=== PATIENT | male | born 1980 ===

== ENCOUNTER 2018-08-17 11:35 | Outpatient (CLI) | payer OTHER | END 2018-08-17 11:36 | disposition home or self-care (01) | LOC: C.RADIC 11:35 | DX: J18.9 Pneumonia, unspecified organism (principal) ==

== ENCOUNTER 2018-11-04 21:52 | Inpatient (IN) | payer OTHER ==
--- NOTE | 2018-11-04 22:21 | C.PDOC ---
History Of Present Illness 37 y/o male presents to ED complaining of worsening SOB and lower leg edema over the last 3 weeks. Patient reports that the SOB worsens with exertion and when laying flat. He denies any chest pain, cough, fever, or palpitations. Patient has PMHx of hypertension, diabetes, CHF, and obstructive sleep apnea. PMD: Dr. Huerta [facility] Docent: Dr. Garrett Time Seen by Provider: 11/04/18 22:08 Chief Complaint (Nursing): Lower Extremity Problem/Injury History Per: Patient History/Exam Limitations: no limitations Onset/Duration Of Symptoms: Days Current Symptoms Are (Timing): Still Present Severity: Moderate Past Medical History Reviewed: Historical Data, Nursing Documentation, Vital Signs Vital Signs: Last Vital Signs Temp 98.2 F 11/04/18 21:57 Pulse 96 H 11/04/18 21:57 Resp 24 11/04/18 21:57 BP 143/80 11/04/18 21:57 Pulse Ox 92 L 11/04/18 21:57 - Medical History PMH: CHF, HTN, Hyperlipidemia Family History: States: No Known Family Hx - Social History Hx Alcohol Use: No Hx Substance Use: No - Immunization History Hx Tetanus Toxoid Vaccination: No Hx Influenza Vaccination: Yes Hx Pneumococcal Vaccination: No Review Of Systems Constitutional: Negative for: Fever, Chills Cardiovascular: Positive for: Orthopnea. Negative for: Chest Pain, Palpitations Respiratory: Positive for: Shortness of Breath, SOB with Excertion. Negative for: Cough Gastrointestinal: Negative for: Nausea, Vomiting Musculoskeletal: Positive for: Other (leg edema) Skin: Negative for: Rash Neurological: Negative for: Headache, Dizziness Physical Exam - Physical Exam Appears: Well, Non-toxic, No Acute Distress, Other (Comfortable, morbidly obese, speaking in full sentences) Skin: Warm, Dry Head: Atraumatic Eye(s): bilateral: Normal Inspection Oral Mucosa: Moist Neck: Supple Cardiovascular: Rhythm Regular Respiratory: Normal Breath Sounds, No Rales, No Rhonchi, No Wheezing Gastrointestinal/Abdominal: Normal Exam, Bowel Sounds, Soft, No Tenderness, Other (obese) Extremity: Other (+2 pitting edema B/L LEs) Extremity: Bilateral: Atraumatic Pulses: Left Dorsalis Pedis: Normal, Right Dorsalis Pedis: Normal Neurological/Psych: Oriented x3 ED Course And Treatment - Laboratory Results Result Diagrams: 11/07/18 07:41 11/07/18 07:41 ECG: Interpreted By Me, Viewed By Me (NSR 100 bpm, normal axis, no acute ST/T wave changes) ECG Interpretation: Normal O2 Sat by Pulse Oximetry: 92 (RA) Pulse Ox Interpretation: Abnormal - Radiology CXR: Interpreted by Me, Viewed By Me (pulmonary vascular congestion, cardiomegaly, no infiltrates) Progress Note: Blood work, EKG, chest XR ordered and reviewed. Patient given IV Lasix. - Physician Consult Information Physician Contacted: Belem Huerta Outcome Of Conversation: Discussed patient with PMD, agrees with admission for dyspnea, leg edema, diabetes mellitus, pulmonary vascular congestion - r/o CHF vs ACS. Disposition - Disposition Disposition: HOSPITALIZED Disposition Time: 23:04 Condition: STABLE - Clinical Impression Clinical Impression: Dyspnea, Pulmonary vascular congestion, Diabetes mellitus, Leg edema - Scribe Statement The provider has reviewed the documentation as recorded by the Neeraj Pritchard Provider Attestation: All medical record entries made by the Amberibreyna were at my direction and personally dictated by me. I have reviewed the chart and agree that the record accurately reflects my personal performance of the history, physical exam, medical decision making, and the department course for this patient. I have also personally directed, reviewed, and agree with the discharge instructions and disposition. Decision To Admit - Pt Status Changed To: Hospital Disposition Of: Inpatient - Admit Certification Admit to Inpatient:: After my assessment, the patient will require hospitalization for at least two midnights. This is because of the severity of symptoms shown, intensity of services needed, and/or the medical risk in this patient being treated as an outpatient. - InPatient: Physician Admission Certification: I certify that this patient requires 2 or more midnights of care for the following reason:: see notes - . Bed Request Type: Telemetry Admitting Physician: Belem Huerta Patient Diagnosis: Dyspnea, Pulmonary vascular congestion, Diabetes mellitus, Leg edema
[2018-11-04 22:31] LABS: BASO # 0.1 K/uL (0.0-0.2); BASO % 0.8 % (0.0-2.0); EOS # 0.1 K/uL (0.0-0.7); EOS % 1.3 % (0.0-4.0); HEMOGLOBIN 16.7 g/dL (12.0-18.0); LYMPH # 2.4 K/uL (1.0-4.3); LYMPH % 23.1 % (20.0-40.0); MEAN CELL VOLUME 84.6 fL (80.0-94.0); MEAN CORPUSCULAR HEMOGLOBIN 29.4 pg (27.0-31.0); MEAN CORPUSCULAR HGB CONC 34.8 g/dL (33.0-37.0); MEAN PLATELET VOLUME 7.8 fL (7.2-11.7); MONO # 0.8 K/uL (0.0-0.8); NEUT # 6.9 K/uL (1.8-7.0); NEUT % 66.8 % (50.0-75.0); NRBC % 0.2 % (0.0-2.0); RBC 5.67 Mil/uL (4.40-5.90); RED CELL DISTRIBUTION WIDTH 13.5 % (11.5-14.5); WHITE BLOOD COUNT 10.4 K/uL (4.8-10.8)
[2018-11-04 22:45] LABS: ALB/GLOB RATIO 1.3 (1.0-2.1); ALBUMIN 3.8 g/dL (3.5-5.0); ALT/SGPT 44 U/L (21-72); AST/SGOT 28 U/L (17-59); BLOOD UREA NITROGEN 17 mg/dL (9-20); CALCIUM 8.9 mg/dl (8.6-10.4); GFR NON-AFRICAN AMERICAN > 60
[2018-11-04] MEDS ORDERED: (Novolin R) Insulin Human Regular 100 units/ml vial IVP ONE (22:47)
--- NOTE | 2018-11-04 23:33 | CP.PCM.HP ---
History of Present Illness - History of Present Illness History of Present Illness: Chief complaint: Shortness of breath HPI:37-year-old male with a history of hypertension, diabetes, hypercholesterolemia, obesity, obesity hypoventilation. Patient recently had a significant weight gain over the course of 6 months. He also started having worsening diabetes over the course of his 3-6 months. Patient came to the office a month ago at that time he was having worsening leg swelling, and associate with the severe shortness of breath on the dosing of even a daytime while examining. He was complaining of severe shortness of breath especially on exertion with minimal Palpation noted. He was also complaining of dizziness with the coughing. Past medical history: Diabetes hypertension hypercholesterolemia and obesity and obesity hypoventilation. Patient is not using the CPAP in the house. He is also not taking the and not controlling the blood sugar well. Surgical history none Allergies no known drug allergy Personal history non-smoker nonalcoholic. Family history significant for CAD, diabetes, hypertension and Parkinson disease. Review of system: Complains of mild manager respiratory care headache. Right throat noted. Neck pain and the chest pain on and off noted. Palpitation present. Shortness of breath noted. Increasing leg swelling, leg edema noted Also some discharge noted. Patient was taking the Lasix with no improvement On examination: Vital signs otherwise stable. Hypoxia noted with minimal exertion. Chest bilateral good air entry, basal rales noted, regular heart sounds, abdomen soft nontender. Obesity present. Bilateral leg edema noted Chest x-ray bilateral CHF pattern noted. Labs reviewed otherwise elevated blood sugar noted. EKG nonspecific. Assessment and recommendation: 37-year-old male with a history of diabetes hypertension hypercholesterolemia obesity and obesity hypoventilation. Morbid obesity noted. Obesity complications present. Likely cor pulmonale and associate with the bilateral leg edema. Episodes of bradycardia noted also. We will continue the current treatment. Lasix. Cardiology evaluation. Glucose control. BiPAP at night. Cardiac possible evaluation for stress test versus angiogram recommended. DVT and GI prophylaxis. Patient already in the process of getting the weight loss treatment. We will follow the patient Present on Admission - Present on Admission Any Indicators Present on Admission: No History of DVT/PE: No History of Uncontrolled Diabetes: No Urinary Catheter: No Decubitus Ulcer Present: No Past Patient History - Past Social History Smoking Status: Never Smoked - CARDIAC Hx Congestive Heart Failure: Yes Hx Hypertension: Yes - PULMONARY Hx Respiratory Disorders: No - NEUROLOGICAL Hx Neurological Disorder: No - HEENT Hx HEENT Problems: No - RENAL Hx Chronic Kidney Disease: No - ENDOCRINE/METABOLIC Hx Endocrine Disorders: Yes Hx Diabetes Mellitus Type 2: Yes - HEMATOLOGICAL/ONCOLOGICAL Hx Blood Disorders: No - INTEGUMENTARY Hx Dermatological Problems: No - MUSCULOSKELETAL/RHEUMATOLOGICAL Hx Musculoskeletal Disorders: Yes Hx Back Pain: Yes - GASTROINTESTINAL Hx Gastrointestinal Disorders: No - GENITOURINARY/GYNECOLOGICAL Hx Genitourinary Disorders: No - PSYCHIATRIC Hx Substance Use: No - SURGICAL HISTORY Hx Surgeries: No - ANESTHESIA Hx Anesthesia: No Meds Allergies/Adverse Reactions: Allergies Allergy/AdvReac Type Severity Reaction Status Date / Time No Known Allergies Allergy Verified 11/04/18 22:00 Results - Vital Signs Recent Vital Signs: Last Vital Signs Temp 98.2 F 11/04/18 21:57 Pulse 96 H 11/04/18 21:57 Resp 24 11/04/18 21:57 BP 143/80 11/04/18 21:57 Pulse Ox 92 L 11/04/18 22:48 - Labs Result Diagrams: 11/05/18 08:30 11/05/18 08:16 Labs: Laboratory Results - last 24 hr 11/04/18 11/04/18 22:28 22:28 WBC 10.4 RBC 5.67 Hgb 16.7 Hct 47.9 MCV 84.6 MCH 29.4 MCHC 34.8 RDW 13.5 Plt Count 228 MPV 7.8 Neut % (Auto) 66.8 Lymph % (Auto) 23.1 [place] % (Auto) 8.0 Eos % (Auto) 1.3 Baso % (Auto) 0.8 Neut # (Auto) 6.9 Lymph # (Auto) 2.4 [place] # (Auto) 0.8 Eos # (Auto) 0.1 Baso # (Auto) 0.1 Sodium 136 Potassium 4.0 Chloride 95 L Carbon Dioxide 36 H Anion Gap 9 L BUN 17 Creatinine 1.0 Est GFR ( Amer) > 60 Est GFR (Non-Af Amer) > 60 Random Glucose 342 H Calcium 8.9 Total Bilirubin 0.4 AST 28 ALT 44 Alkaline Phosphatase 145 H Total Creatine Kinase 52 L CK-MB (Mass) 0.80 Troponin I < 0.0120 NT-Pro-B Natriuret Pep 21.0 Total Protein 6.6 Albumin 3.8 Globulin 2.9 Albumin/Globulin Ratio 1.3
[2018-11-05] MEDS: Albuterol-Ipratrop 3 mg / 0.5 (3 ml) UD INH SCH ×4 (02:58→19:24)
--- NOTE | 2018-11-05 08:11 | RAD ---
Date of service: 11/04/2018 PROCEDURE: CHEST RADIOGRAPH, 1 VIEW HISTORY: SOB COMPARISON: 08/17/2018 FINDINGS: LUNGS: The lungs are well inflated. There is mild pulmonary venous congestion. No focal consolidation. PLEURA: No pneumothorax or pleural effusion. CARDIOVASCULAR: Mild cardiomegaly. No aortic atherosclerotic calcifications present. OSSEOUS STRUCTURES: Within normal limits for the patient's age. VISUALIZED UPPER ABDOMEN: Normal. OTHER FINDINGS: None. IMPRESSION: No active pulmonary disease. Mild cardiomegaly and pulmonary venous congestion.
[2018-11-05] MEDS: (Novolin R) Insulin Human Regular 100 units/ml vial SC SCH ×4 (08:15→21:28)
[2018-11-05 09:08] LABS: BASO # 0.1 K/uL (0.0-0.2); BASO % 0.7 % (0.0-2.0); EOS # 0.1 K/uL (0.0-0.7); EOS % 1.5 % (0.0-4.0); HEMOGLOBIN 16.4 g/dL (12.0-18.0); LYMPH # 1.8 K/uL (1.0-4.3); LYMPH % 22.3 % (20.0-40.0); MEAN CELL VOLUME 85.8 fL (80.0-94.0); MEAN CORPUSCULAR HEMOGLOBIN 29.1 pg (27.0-31.0); MEAN PLATELET VOLUME 8.2 fL (7.2-11.7); MONO # 0.7 K/uL (0.0-0.8); MONO % 8.6 % (0.0-10.0); NEUT # 5.4 K/uL (1.8-7.0); NEUT % 66.9 % (50.0-75.0); NRBC % 0.1 % (0.0-2.0); RBC 5.65 Mil/uL (4.40-5.90); RED CELL DISTRIBUTION WIDTH 13.6 % (11.5-14.5); WHITE BLOOD COUNT 8.1 K/uL (4.8-10.8)
[2018-11-05 09:18] LABS: B-TYPE NATRIURETIC PEPTIDE 16.6 pg/mL (0-450); CK-MB 0.76 ng/mL (0.0-3.38)
[2018-11-05 09:33] LABS: ALB/GLOB RATIO 1.2 (1.0-2.1); ALBUMIN 3.6 g/dL (3.5-5.0); ALT/SGPT 43 U/L (21-72); AST/SGOT 31 U/L (17-59); BLOOD UREA NITROGEN 15 mg/dL (9-20); CALCIUM 8.5 mg/dl (8.6-10.4); GFR NON-AFRICAN AMERICAN > 60
[2018-11-05] MEDS: (Lantus) Insulin Glargine, Recombinant SC SCH (21:38)
--- NOTE | 2018-11-05 23:49 | CP.PCM.CON ---
History of Present Illness - History of Present Illness History of Present Illness: 37 y/o male presents to ED complaining of worsening SOB and lower leg edema that has been worsening over the last 3 weeks. Patient states that SOB worsens with exertion and when laying flat. He denies any chest pain, cough, fever, or p alpitations. Patient has PMHx of hypertension, diabetes, CHF, and obstructive sleep apnea. PMD: Dr. Huerta Time Seen by Provider: 11/04/18 22:08 Chief Complaint (Nursing): Lower Extremity Problem/Injury History Per: Patient History/Exam Limitations: no limitations Onset/Duration Of Symptoms: Days Current Symptoms Are (Timing): Still Present Past Medical History Reviewed: Historical Data, Nursing Documentation, Vital Signs Vital Signs: Last Vital Signs Temp 98.2 F 11/04/18 21:57 Pulse 96 H 11/04/18 21:57 Resp 24 11/04/18 21:57 BP 143/80 11/04/18 21:57 Pulse Ox 92 L 11/04/18 21:57 - Medical History PMH: CHF, HTN, Hyperlipidemia Denies: Chronic Kidney Disease Family History: States: No Known Family Hx - Social History Hx Alcohol Use: No Hx Substance Use: No - Immunization History Hx Tetanus Toxoid Vaccination: No Hx Influenza Vaccination: Yes Hx Pneumococcal Vaccination: No Review Of Systems Constitutional: Negative for: Fever, Chills Cardiovascular: Negative for: Chest Pain, Palpitations Respiratory: Positive for: Shortness of Breath. Negative for: Cough Gastrointestinal: Negative for: Nausea, Vomiting Musculoskeletal: Positive for: Other (leg edema) Skin: Negative for: Rash Physical Exam - Physical Exam Appears: Non-toxic, No Acute Distress, Other (Comfortable, morbidly obese) Skin: Warm, Dry Head: Atraumatic Eye(s): bilateral: Normal Inspection Oral Mucosa: Moist Neck: Supple Cardiovascular: Rhythm Regular, No Murmur Respiratory: Normal Breath Sounds, No Rales, No Rhonchi, No Wheezing Gastrointestinal/Abdominal: Soft, No Tenderness, Other (obese) Extremity: Other (+2 pitting edema) Extremity: Bilateral: Atraumatic Neurological/Psych: Oriented x3, Normal Speech (speaking full sentences) ED Course And Treatment - Laboratory Results ECG: Interpreted By Me, Viewed By Me (NSR 100 bpm, normal axis, no acute ST/T wave changes) ECG Interpretation: Normal O2 Sat by Pulse Oximetry: 92 (RA) Pulse Ox Interpretation: Abnormal - Radiology CXR: Interpreted by Me, Viewed By Me (pulmonary vascular congestion, cardiomegaly, no infiltrates) Progress Note: EKG, chest XR, and labs ordered. Lasix administered. Past Patient History - Past Social History Smoking Status: Former Smoker - CARDIAC Hx Congestive Heart Failure: Yes Hx Hypertension: Yes - PULMONARY Hx Respiratory Disorders: No - NEUROLOGICAL Hx Neurological Disorder: No - HEENT Hx HEENT Problems: No - RENAL Hx Chronic Kidney Disease: No - ENDOCRINE/METABOLIC Hx Endocrine Disorders: Yes Hx Diabetes Mellitus Type 2: Yes - HEMATOLOGICAL/ONCOLOGICAL Hx Blood Disorders: No - INTEGUMENTARY Hx Dermatological Problems: No - MUSCULOSKELETAL/RHEUMATOLOGICAL Hx Musculoskeletal Disorders: Yes Hx Back Pain: Yes Hx Falls: No - GASTROINTESTINAL Hx Gastrointestinal Disorders: No - GENITOURINARY/GYNECOLOGICAL Hx Genitourinary Disorders: No - PSYCHIATRIC Hx Substance Use: No - SURGICAL HISTORY Hx Surgeries: No - ANESTHESIA Hx Anesthesia: No Meds Allergies/Adverse Reactions: Allergies Allergy/AdvReac Type Severity Reaction Status Date / Time No Known Allergies Allergy Verified 11/04/18 22:00 - Medications Medications: Current Medications Albuterol/Ipratropium (Duoneb 3 Mg/0.5 Mg (3 Ml) Ud) 3 ml INH RQ6 [facility] Last Admin: 11/05/18 19:24 Dose: 3 ml Famotidine (Pepcid) 20 mg PO DAILY [facility] Last Admin: 11/05/18 10:43 Dose: 20 mg Furosemide (Lasix) 20 mg IVP DAILY [facility] Last Admin: 11/05/18 10:44 Dose: 20 mg Glipizide (Glucotrol) 10 mg PO ACB [facility] Last Admin: 11/05/18 08:10 Dose: 10 mg Heparin Sodium (Porcine) (Heparin) 5,000 units SC Q8 [facility] Last Admin: 11/05/18 21:36 Dose: 5,000 units Insulin Glargine (Lantus) 10 unit SC HS [facility] Last Admin: 11/05/18 21:38 Dose: 10 u Insulin Human Regular (Novolin R) 0 unit SC ACHS [facility]; Protocol Last Admin: 11/05/18 21:28 Dose: Not Given Losartan Potassium (Cozaar) 50 mg PO DAILY [facility] Last Admin: 11/05/18 10:43 Dose: 50 mg Pneumococcal Polyvalent Vaccine (Pneumovax 23 Vaccine) 0.5 ml IM .ONCE ONE Stop: 11/08/18 10:01 Rosuvastatin Calcium (Crestor) 5 mg PO DAILY [facility] Last Admin: 11/05/18 10:46 Dose: 5 mg Rosuvastatin Calcium (Crestor) 5 mg PO HS [facility] Last Admin: 11/05/18 21:35 Dose: 5 mg Sitagliptin Phosphate (Januvia) 100 mg PO DAILY [facility] Last Admin: 11/05/18 10:44 Dose: 100 mg Results - Vital Signs Recent Vital Signs: Last Vital Signs Temp 98.4 F 11/05/18 22:00 Pulse 105 H 11/05/18 22:00 Resp 22 11/05/18 22:00 BP 113/76 11/05/18 22:00 Pulse Ox 95 11/05/18 22:00 - Labs Result Diagrams: 11/05/18 08:30 11/05/18 08:16 Labs: Laboratory Results - last 24 hr 11/05/18 11/05/18 11/05/18 05:49 08:16 08:30 WBC 8.1 RBC 5.65 Hgb 16.4 Hct 48.4 MCV 85.8 MCH 29.1 MCHC 34.0 RDW 13.6 Plt Count 231 MPV 8.2 Neut % (Auto) 66.9 Lymph % (Auto) 22.3 [place] % (Auto) 8.6 Eos % (Auto) 1.5 Baso % (Auto) 0.7 Neut # (Auto) 5.4 Lymph # (Auto) 1.8 [place] # (Auto) 0.7 Eos # (Auto) 0.1 Baso # (Auto) 0.1 Sodium 137 Potassium 3.6 Chloride 96 L Carbon Dioxide 35 H Anion Gap 10 BUN 15 Creatinine 0.7 L Est GFR ( Amer) > 60 Est GFR (Non-Af Amer) > 60 POC Glucose (mg/dL) 231 H Random Glucose 286 H Calcium 8.5 L Phosphorus 4.4 Magnesium 1.7 Total Bilirubin 0.5 AST 31 ALT 43 Alkaline Phosphatase 118 Total Creatine Kinase 41 L CK-MB (Mass) 0.76 Troponin I < 0.0120 NT-Pro-B Natriuret Pep 16.6 Total Protein 6.5 Albumin 3.6 Globulin 2.9 Albumin/Globulin Ratio 1.2 11/05/18 11/05/1811/05/19 11:12 16:07 20:54 WBC RBC Hgb Hct MCV MCH MCHC RDW Plt Count MPV Neut % (Auto) Lymph % (Auto) [place] % (Auto) Eos % (Auto) Baso % (Auto) Neut # (Auto) Lymph # (Auto) [place] # (Auto) Eos # (Auto) Baso # (Auto) Sodium Potassium Chloride Carbon Dioxide Anion Gap BUN Creatinine Est GFR ( Amer) Est GFR (Non-Af Amer) POC Glucose (mg/dL) 236 H 279 H 267 H Random Glucose Calcium Phosphorus Magnesium Total Bilirubin AST ALT Alkaline Phosphatase Total Creatine Kinase CK-MB (Mass) Troponin I NT-Pro-B Natriuret Pep Total Protein Albumin Globulin Albumin/Globulin Ratio Assessment & Plan - Assessment and Plan (Free Text) Assessment: 37 M HTN DM 2 Hyperlipidemia Obesity Chest pain and dyspnea For stress test in am
[2018-11-06] MEDS: Albuterol-Ipratrop 3 mg / 0.5 (3 ml) UD INH SCH ×4 (01:46→19:15)
[2018-11-06] MEDS: (Novolin R) Insulin Human Regular 100 units/ml vial SC SCH ×4 (08:42→21:51)
--- NOTE | 2018-11-06 10:01 | CARD ---
APPROVED REPORT Date of service: 11/04/2018 EKG Measurement Heart [id number] <Conclusion> Normal sinus rhythm Normal ECG
--- NOTE | 2018-11-06 12:30 | VASCLAB ---
Date of service: 11/06/2018 PROCEDURE: Lower Extremity Venous Duplex Exam. HISTORY: dvt B/L LE Edema, SOB, Morbid Obesity PRIORS: None. TECHNIQUE: Bilateral common femoral, femoral, popliteal and posterior tibial, peroneal and great saphenous veins were evaluated. Flow was assessed with color Doppler, compressibility, assessment of phasic flow and augmentation response. Report prepared by Yandel Xiong, T FINDINGS: RIGHT: 1. Common Femoral Vein: 1.1. Compressibility - Fully compressible: Thrombus - None : Flow - Phasic: Augmentation -Normal: Reflux - . 2. Femoral Vein: 2.1. Compressibility - Fully compressible: Thrombus - None : Flow - Phasic: Augmentation -Normal: Reflux - . 3. Popliteal Vein: 3.1. Compressibility - Fully compressible: Thrombus - None : Flow - Phasic: Augmentation -Normal: Reflux - . 4. Posterior Tibial Vein: 4.1. Compressibility - Fully compressible: Thrombus - None: Flow - Phasic: Augmentation -Normal: Reflux - . 5. Peroneal Vein: 5.1. Compressibility - Fully compressible: Thrombus - None: Flow - Phasic: Augmentation -Normal: Reflux - . 6. Great Saphenous Vein: 6.1. Compressibility - Fully compressible: Thrombus - None: Flow - Phasic: Augmentation - Normal: Reflux - . LEFT: 1. Common Femoral Vein: 1.1. Compressibility - Fully compressible: Thrombus - None: Flow - Phasic: Augmentation -Normal: Reflux - . 2. Femoral Vein: 2.1. Compressibility - Fully compressible: Thrombus - None: Flow - Phasic: Augmentation -Normal: Reflux - . 3. Popliteal Vein: 3.1. Compressibility - Fully compressible: Thrombus - None : Flow - Phasic: Augmentation -Normal: Reflux - . 4. Posterior Tibial Vein: 4.1. Compressibility - Fully compressible: Thrombus - None: Flow - Phasic: Augmentation -Normal: Reflux - . 5. Peroneal Vein: 5.1. Compressibility - Fully compressible: Thrombus - None: Flow - Phasic: Augmentation -Normal: Reflux - . 6. Great Saphenous Vein: 6.1. Compressibility - Fully compressible: Thrombus - None: Flow - Phasic: Augmentation - Normal: Reflux - . OTHER FINDINGS: Right: None significant. Left: None significant. IMPRESSION: Right: No evidence of deep or superficial vein thrombosis of the right lower extremity. Left: No evidence of deep or superficial vein thrombosis of the left lower extremity.
--- NOTE | 2018-11-06 15:03 | CP.PCM.PN ---
Subjective - Date & Time of Evaluation Date of Evaluation: 11/05/18 Time of Evaluation: 15:02 - Subjective Subjective: Patient is feeling well. Leg swelling is slightly improving. Still shortness of breath noted. I discussed with the cardiology, for possible stress test tomorrow Objective - Vital Signs/Intake and Output Vital Signs (last 24 hours): Temp Pulse Resp BP Pulse Ox 97.7 F 114 H 18 120/77 95 11/06/18 10:19 11/06/18 13:18 11/06/18 10:19 11/06/18 10:19 11/06/18 13:12 Intake and Output: 11/06/18 11/06/18 06:59 18:59 Intake Total 300 800 Balance 300 800 - Medications Medications: Current Medications Albuterol/Ipratropium (Duoneb 3 Mg/0.5 Mg (3 Ml) Ud) 3 ml INH RQ6 [facility] Last Admin: 11/06/18 13:03 Dose: 3 ml Famotidine (Pepcid) 20 mg PO DAILY [facility] Last Admin: 11/06/18 09:52 Dose: 20 mg Furosemide (Lasix) 20 mg IVP DAILY [facility] Last Admin: 11/06/18 09:52 Dose: 20 mg Glipizide (Glucotrol) 10 mg PO ACB [facility] Last Admin: 11/06/18 08:41 Dose: Not Given Heparin Sodium (Porcine) (Heparin) 5,000 units SC Q8 [facility] Last Admin: 11/06/18 14:13 Dose: 5,000 units Insulin Glargine (Lantus) 10 unit SC HS [facility] Last Admin: 11/05/18 21:38 Dose: 10 u Insulin Human Regular (Novolin R) 0 unit SC ACHS [facility]; Protocol Last Admin: 11/06/18 12:27 Dose: 10 unit Losartan Potassium (Cozaar) 50 mg PO DAILY [facility] Last Admin: 11/06/18 09:51 Dose: 50 mg Pneumococcal Polyvalent Vaccine (Pneumovax 23 Vaccine) 0.5 ml IM .ONCE ONE Stop: 11/08/18 10:01 Rosuvastatin Calcium (Crestor) 5 mg PO HS [facility] Last Admin: 11/05/18 21:35 Dose: 5 mg Sitagliptin Phosphate (Januvia) 100 mg PO DAILY [facility] Last Admin: 11/06/18 09:52 Dose: 100 mg - Labs Labs: 11/05/18 08:30 11/05/18 08:16
--- NOTE | 2018-11-06 15:03 | CP.PCM.PN ---
Subjective - Date & Time of Evaluation Date of Evaluation: 11/06/18 Time of Evaluation: 15:03 - Subjective Subjective: Patient last night he did not use the CPAP. Patient had episodes of bradycardia, and a sinus pause for 5 seconds noted. Could not do the stress test today. Will talk to the global director air and climate change, for possible angiogram. I also would like to get the elective physiological evaluation for the bradycardia especially at nighttime. Most likely related to sleep apnea and obstructive sleep apnea. We will continue the current treatment and will follow the patient. Objective - Vital Signs/Intake and Output Vital Signs (last 24 hours): Temp Pulse Resp BP Pulse Ox 97.7 F 114 H 18 120/77 95 11/06/18 10:19 11/06/18 13:18 11/06/18 10:19 11/06/18 10:19 11/06/18 13:12 Intake and Output: 11/06/18 11/06/18 06:59 18:59 Intake Total 300 800 Balance 300 800 - Medications Medications: Current Medications Albuterol/Ipratropium (Duoneb 3 Mg/0.5 Mg (3 Ml) Ud) 3 ml INH RQ6 [facility] Last Admin: 11/06/18 13:03 Dose: 3 ml Famotidine (Pepcid) 20 mg PO DAILY [facility] Last Admin: 11/06/18 09:52 Dose: 20 mg Furosemide (Lasix) 20 mg IVP DAILY [facility] Last Admin: 11/06/18 09:52 Dose: 20 mg Glipizide (Glucotrol) 10 mg PO ACB [facility] Last Admin: 11/06/18 08:41 Dose: Not Given Heparin Sodium (Porcine) (Heparin) 5,000 units SC Q8 [facility] Last Admin: 11/06/18 14:13 Dose: 5,000 units Insulin Glargine (Lantus) 10 unit SC HS [facility] Last Admin: 11/05/18 21:38 Dose: 10 u Insulin Human Regular (Novolin R) 0 unit SC ACHS [facility]; Protocol Last Admin: 11/06/18 12:27 Dose: 10 unit Losartan Potassium (Cozaar) 50 mg PO DAILY [facility] Last Admin: 11/06/18 09:51 Dose: 50 mg Pneumococcal Polyvalent Vaccine (Pneumovax 23 Vaccine) 0.5 ml IM .ONCE ONE Stop: 11/08/18 10:01 Rosuvastatin Calcium (Crestor) 5 mg PO [facility] Last Admin: 11/05/18 21:35 Dose: 5 mg Sitagliptin Phosphate (Januvia) 100 mg PO DAILY [facility] Last Admin: 11/06/18 09:52 Dose: 100 mg - Labs Labs: 11/05/18 08:30 11/05/18 08:16
--- NOTE | 2018-11-06 20:47 | CARD ---
APPROVED REPORT Date of service: 11/06/2018 EXAM: Two-dimensional and M-mode echocardiogram with Doppler and color Doppler. Other Information Quality : Technically LimitedRhythm : INDICATION Chest Pain Congestive Heart Failure Coronary stent; HEP-C RISK FACTORS Hypertension Obesity Hyperlipidemia Diabetes 2D DIMENSIONS IVSd1.4 (0.7-1.1cm)Aortic Root (2D)3.6 (2.0-3.7cm) LVDd5.1 (3.9-5.9cm)PWd1.4 (0.7-1.1cm) LA Yhbtda27 (18-58mL)LVDs3.4 (2.5-4.0cm) FS (%) 32.8 %LVEF (%)61.0 (>50%) LVEF (Posadas's)63.83 %IVC0.00 cm M-Mode DIMENSIONS RVDd3.64 (2.1-3.2cm)Left Atrium (MM)4.21 (2.5-4.0cm) IVSd1.21 (0.7-1.1cm)Aortic Root3.34 (2.2-3.7cm) LVDd5.51 (4.0-5.6cm)Aortic Cusp Exc.2.39 (1.5-2.0cm) PWd1.13 (0.7-1.1cm)FS (%) 35 % LVDs3.60 (2.0-3.8cm)LVEF (%)63 (>50%) Mitral Valve MV E Hpemqoop80.9cm/sMV A Bwdgxxmk64.9cm/sE/A ratio1.3 TDI Lateral E' Peak V8.09cm/sMedial E' Peak V9.06cm/sE/Lateral E'11.5 E/Medial E'10.3 Tricuspid Valve TR Peak Rdyeibwh407pz/sTR Peak Gr.[id number] LEFT VENTRICLE The left ventricle is normal size. There is mild concentric left ventricular hypertrophy. Left ventricle systolic function is normal. The Ejection Fraction is 60-65%. There is normal LV segmental wall motion. The left ventricular diastolic function is normal. No left ventricle thrombus noted on this study. RIGHT VENTRICLE The right ventricle is normal size. The right ventricular systolic function is normal. ATRIA The left atrium is mildly dilated. The right atrium size is normal. AORTIC VALVE The aortic valve is trileaflet. No aortic regurgitation is present. There is no aortic valvular stenosis. There is no aortic valvular vegetation. MITRAL VALVE Mitral annular calcification is mild. There is no evidence of mitral valve prolapse. There is no mitral valve stenosis. Mitral regurgitation is trace. TRICUSPID VALVE The tricuspid valve is normal in structure. There is trace tricuspid regurgitation. Right ventricular systolic pressure is estimated at less than 30 mmHg. There is no pulmonary hypertension. There is no tricuspid valve prolapse or vegetation. There is no tricuspid valve stenosis. PULMONIC VALVE The pulmonic valve is not well visualized. There is no pulmonic valvular regurgitation. There is no pulmonic valvular stenosis. GREAT VESSELS The aortic root is normal in size. The ascending aorta is normal in size. The IVC is normal in size and collapses >50% with inspiration. PERICARDIAL EFFUSION There is no pericardial effusion. There is no pleural effusion. <Conclusion> Technically limited study. The left ventricle is normal size. There is mild concentric left ventricular hypertrophy. Left ventricle systolic function is normal. The Ejection Fraction is 60-65%. The left ventricular diastolic function is normal. The right ventricle is normal size. The right ventricular systolic function is normal. The left atrium is mildly dilated. The right atrium size is normal. Mitral regurgitation is trace. There is trace tricuspid regurgitation.
[2018-11-06] MEDS: (Lantus) Insulin Glargine, Recombinant SC SCH (21:49)
[2018-11-07] MEDS: Albuterol-Ipratrop 3 mg / 0.5 (3 ml) UD INH SCH ×3 (01:40→19:03)
--- NOTE | 2018-11-07 05:40 | CP.PCM.PN ---
Subjective - Date & Time of Evaluation Date of Evaluation: 11/06/18 Time of Evaluation: 16:25 - Subjective Subjective: Stress test got cancelled due to weight issues For Cardiac cath tomorrow EP consult for cardiac pauses and bradycardia Review Of Systems Constitutional: Negative for: Fever, Chills Cardiovascular: Negative for: Chest Pain, Palpitations Respiratory: Positive for: Shortness of Breath. Negative for: Cough Gastrointestinal: Negative for: Nausea, Vomiting Musculoskeletal: Positive for: Other (leg edema) Skin: Negative for: Rash Physical Exam - Physical Exam Appears: Non-toxic, No Acute Distress, Other (Comfortable, morbidly obese) Skin: Warm, Dry Head: Atraumatic Eye(s): bilateral: Normal Inspection Oral Mucosa: Moist Neck: Supple Cardiovascular: Rhythm Regular, No Murmur Respiratory: Normal Breath Sounds, No Rales, No Rhonchi, No Wheezing Gastrointestinal/Abdominal: Soft, No Tenderness, Other (obese) Extremity: Other (+2 pitting edema) Extremity: Bilateral: Atraumatic Neurological/Psych: Oriented x3, Normal Speech (speaking full sentences) Objective - Vital Signs/Intake and Output Vital Signs (last 24 hours): Temp Pulse Resp BP Pulse Ox 97.5 F L 96 H 15 127/76 95 11/06/18 23:22 11/07/18 02:02 11/06/18 23:22 11/06/18 23:22 11/06/18 23:22 Intake and Output: 11/06/18 11/07/18 18:59 06:59 Intake Total 800 800 Balance 800 800 - Medications Medications: Current Medications Albuterol/Ipratropium (Duoneb 3 Mg/0.5 Mg (3 Ml) Ud) 3 ml INH RQ6 [facility] Last Admin: 11/07/18 01:40 Dose: 3 ml Famotidine (Pepcid) 20 mg PO DAILY [facility] Last Admin: 11/06/18 09:52 Dose: 20 mg Furosemide (Lasix) 20 mg IVP DAILY [facility] Last Admin: 11/06/18 09:52 Dose: 20 mg Glipizide (Glucotrol) 10 mg PO ACB [facility] Last Admin: 11/06/18 08:41 Dose: Not Given Heparin Sodium (Porcine) (Heparin) 5,000 units SC Q8 [facility] Last Admin: 11/06/18 21:48 Dose: 5,000 units Insulin Glargine (Lantus) 10 unit SC [facility] Last Admin: 11/06/18 21:49 Dose: 10 u Insulin Human Regular (Novolin R) 0 unit SC [facility]; Protocol Last Admin: 11/06/18 21:51 Dose: 2 unit Losartan Potassium (Cozaar) 50 mg PO DAILY [facility] Last Admin: 11/06/18 09:51 Dose: 50 mg Pneumococcal Polyvalent Vaccine (Pneumovax 23 Vaccine) 0.5 ml IM .ONCE ONE Stop: 11/08/18 10:01 Rosuvastatin Calcium (Crestor) 5 mg PO [facility] Last Admin: 11/06/18 21:48 Dose: 5 mg Sitagliptin Phosphate (Januvia) 100 mg PO DAILY [facility] Last Admin: 11/06/18 09:52 Dose: 100 mg - Labs Labs: 11/05/18 08:30 11/05/18 08:16 Assessment and Plan - Assessment and Plan (Free Text) Assessment: Cardiac arrhytmias with pauses HTN DM2 [facility]HA[facility] Pending EP eval
[2018-11-07] MEDS: (Novolin R) Insulin Human Regular 100 units/ml vial SC SCH ×4 (07:34→22:45)
[2018-11-07 08:20] LABS: ALB/GLOB RATIO 1.3 (1.0-2.1); ALBUMIN 3.8 g/dL (3.5-5.0); ALT/SGPT 40 U/L (21-72); AST/SGOT 32 U/L (17-59); BLOOD UREA NITROGEN 16 mg/dL (9-20); CALCIUM 8.7 mg/dl (8.6-10.4); GFR NON-AFRICAN AMERICAN > 60; HDL CHOLESTEROL 37 mg/dL (30-70)
[2018-11-07 08:24] LABS: BASO # 0.1 K/uL (0.0-0.2); BASO % 1.4 % (0.0-2.0); EOS # 0.2 K/uL (0.0-0.7); EOS % 2.4 % (0.0-4.0); HEMOGLOBIN 16.8 g/dL (12.0-18.0); INR 1.1; LYMPH # 1.9 K/uL (1.0-4.3); LYMPH % 21.5 % (20.0-40.0); MEAN CELL VOLUME 85.9 fL (80.0-94.0); MEAN CORPUSCULAR HEMOGLOBIN 29.8 pg (27.0-31.0); MEAN CORPUSCULAR HGB CONC 34.7 g/dL (33.0-37.0); MEAN PLATELET VOLUME 8.6 fL (7.2-11.7); MONO # 0.8 K/uL (0.0-0.8); MONO % 9.1 % (0.0-10.0); NEUT # 5.6 K/uL (1.8-7.0); NEUT % 65.6 % (50.0-75.0); NRBC % 0.2 % (0.0-2.0); PROTHROMBIN TIME 11.5 SECONDS (9.7-12.2); RBC 5.64 Mil/uL (4.40-5.90); RED CELL DISTRIBUTION WIDTH 13.1 % (11.5-14.5); WHITE BLOOD COUNT 8.6 K/uL (4.8-10.8)
[2018-11-07 08:53] LABS: LDL CHOLESTEROL 71 mg/dL (0-129)
[2018-11-07] MEDS ORDERED: Iodixanol 320 MG/ML 100 ML BOTTLE IV ONE ×2 (10:29→11:25)
[2018-11-07] MEDS ORDERED: Lidocaine 2% MPF (5 ml) Inj ONE (10:29)
[2018-11-07] MEDS ORDERED: Midazolam 2 MG/2 ML VIAL ONE (10:56)
[2018-11-07] MEDS ORDERED: DiphenhydrAMINE 50 mg/ml Inj ONE (11:03)
--- NOTE | 2018-11-07 14:41 | CP.PCM.PN ---
Subjective - Date & Time of Evaluation Date of Evaluation: 11/07/18 Time of Evaluation: 14:40 - Subjective Subjective: Patient s/p cardiac cath 1. Normal cath and Normal EF Medical management Objective - Vital Signs/Intake and Output Vital Signs (last 24 hours): Temp Pulse Resp BP Pulse Ox 97.3 F L 94 H 20 124/78 92 L 11/07/18 08:24 11/07/18 08:24 11/07/18 08:24 11/07/18 14:25 11/07/18 10:58 Intake and Output: 11/07/18 11/07/18 06:59 18:59 Intake Total 800 Balance 800 - Medications Medications: Current Medications Albuterol/Ipratropium (Duoneb 3 Mg/0.5 Mg (3 Ml) Ud) 3 ml INH RQ6 [facility] Last Admin: 11/07/18 09:46 Dose: Not Given Famotidine (Pepcid) 20 mg PO DAILY [facility] Last Admin: 11/07/18 14:25 Dose: 20 mg Furosemide (Lasix) 20 mg IVP DAILY [facility] Last Admin: 11/07/18 14:25 Dose: 20 mg Glipizide (Glucotrol) 10 mg PO ACB [facility] Last Admin: 11/07/18 08:00 Dose: Not Given Heparin Sodium (Porcine) (Heparin) 5,000 units SC Q8 [facility] Last Admin: 11/06/18 21:48 Dose: 5,000 units Insulin Glargine (Lantus) 10 unit SC HS [facility] Last Admin: 11/06/18 21:49 Dose: 10 u Insulin Human Regular (Novolin R) 0 unit SC ACHS [facility]; Protocol Last Admin: 11/07/18 07:34 Dose: Not Given Losartan Potassium (Cozaar) 50 mg PO DAILY [facility] Last Admin: 11/07/18 12:42 Dose: 50 mg Pneumococcal Polyvalent Vaccine (Pneumovax 23 Vaccine) 0.5 ml IM .ONCE ONE Stop: 11/08/18 10:01 Rosuvastatin Calcium (Crestor) 5 mg PO HS [facility] Last Admin: 11/06/18 21:48 Dose: 5 mg Sitagliptin Phosphate (Januvia) 100 mg PO DAILY [facility] Last Admin: 11/07/18 14:24 Dose: 100 mg - Labs Labs: 11/07/18 07:41 11/07/18 07:41 PT 11.5 SECONDS (9.7-12.2) 11/07/18 07:41 INR 1.1 11/07/18 07:41
[2018-11-07] MEDS: (Lantus) Insulin Glargine, Recombinant SC SCH (22:11)
--- NOTE | 2018-11-07 22:17 | CP.PCM.PN ---
Subjective - Date & Time of Evaluation Date of Evaluation: 11/07/18 Time of Evaluation: 22:17 - Subjective Subjective: Patient persistently having bradycardia at night. I spoke to the flight attendant. I discussed with the patient in detail that he will definitely need a back-up for the significant bradycardic event at night. We will get the street sweeper operator opinion and they will follow-up the patient Objective - Vital Signs/Intake and Output Vital Signs (last 24 hours): Temp Pulse Resp BP Pulse Ox 97.6 F 111 H 20 125/75 95 11/07/18 15:52 11/07/18 19:45 11/07/18 15:52 11/07/18 15:52 11/07/18 15:52 - Medications Medications: Current Medications Albuterol/Ipratropium (Duoneb 3 Mg/0.5 Mg (3 Ml) Ud) 3 ml INH RQ6 [facility] Last Admin: 11/07/18 19:03 Dose: 3 ml Famotidine (Pepcid) 20 mg PO DAILY [facility] Last Admin: 11/07/18 14:25 Dose: 20 mg Furosemide (Lasix) 20 mg IVP DAILY [facility] Last Admin: 11/07/18 14:25 Dose: 20 mg Glipizide (Glucotrol) 10 mg PO ACB [facility] Last Admin: 11/07/18 08:00 Dose: Not Given Heparin Sodium (Porcine) (Heparin) 5,000 units SC Q8 [facility] Last Admin: 11/06/18 21:48 Dose: 5,000 units Insulin Glargine (Lantus) 10 unit SC HS [facility] Last Admin: 11/07/18 22:11 Dose: 10 u Insulin Human Regular (Novolin R) 0 unit SC ACHS [facility]; Protocol Last Admin: 11/07/18 18:01 Dose: 6 unit Losartan Potassium (Cozaar) 50 mg PO DAILY [facility] Last Admin: 11/07/18 12:42 Dose: 50 mg Pneumococcal Polyvalent Vaccine (Pneumovax 23 Vaccine) 0.5 ml IM .ONCE ONE Stop: 11/08/18 10:01 Rosuvastatin Calcium (Crestor) 5 mg PO HS [facility] Last Admin: 11/07/18 22:03 Dose: 5 mg Sitagliptin Phosphate (Januvia) 100 mg PO DAILY [facility] Last Admin: 11/07/18 14:24 Dose: 100 mg - Labs Labs: 11/07/18 07:41 11/07/18 07:41 PT 11.5 SECONDS (9.7-12.2) 11/07/18 07:41 INR 1.1 11/07/18 07:41
[2018-11-08] MEDS: Albuterol-Ipratrop 3 mg / 0.5 (3 ml) UD INH SCH ×2 (07:30→13:36)
[2018-11-08] MEDS: (Novolin R) Insulin Human Regular 100 units/ml vial SC SCH ×4 (08:21→22:43)
[2018-11-08] MEDS ORDERED: Pneumococcal 23-Valent Vaccine IM ONE (10:00)
[2018-11-08] MEDS: (Lantus) Insulin Glargine, Recombinant SC SCH (22:44)
[2018-11-09] MEDS: Albuterol-Ipratrop 3 mg / 0.5 (3 ml) UD INH SCH ×4 (01:41→20:39)
--- NOTE | 2018-11-09 07:33 | CP.PCM.PN ---
Subjective - Date & Time of Evaluation Date of Evaluation: 11/08/18 Time of Evaluation: 20:10 - Subjective Subjective: Patient seen and evaluated For Cardiac cath Normal EP consult for cardiac pauses and bradycardia Review Of Systems Constitutional: Negative for: Fever, Chills Cardiovascular: Negative for: Chest Pain, Palpitations Respiratory: Positive for: Shortness of Breath. Negative for: Cough Gastrointestinal: Negative for: Nausea, Vomiting Musculoskeletal: Positive for: Other (leg edema) Skin: Negative for: Rash Physical Exam - Physical Exam Appears: Non-toxic, No Acute Distress, Other (Comfortable, morbidly obese) Skin: Warm, Dry Head: Atraumatic Eye(s): bilateral: Normal Inspection Oral Mucosa: Moist Neck: Supple Cardiovascular: Rhythm Regular, No Murmur Respiratory: Normal Breath Sounds, No Rales, No Rhonchi, No Wheezing Gastrointestinal/Abdominal: Soft, No Tenderness, Other (obese) Extremity: Other (+2 pitting edema) Extremity: Bilateral: Atraumatic Neurological/Psych: Oriented x3, Normal Speech (speaking full sentences) Assessment and Plan - Assessment and Plan (Free Text) Assessment: Cardiac arrhytmias with pauses HTN DM2 MICHAEL Normal Cath Pending EP eval Objective - Vital Signs/Intake and Output Vital Signs (last 24 hours): Temp Pulse Resp BP Pulse Ox 97.9 F 108 H 20 144/82 97 11/08/18 23:00 11/08/18 23:53 11/08/18 23:00 11/08/18 23:00 11/08/18 23:00 - Medications Medications: Current Medications Albuterol/Ipratropium (Duoneb 3 Mg/0.5 Mg (3 Ml) Ud) 3 ml INH RQ6 [facility] Last Admin: 11/09/18 01:41 Dose: 3 ml Famotidine (Pepcid) 20 mg PO DAILY [facility] Last Admin: 11/08/18 09:32 Dose: 20 mg Furosemide (Lasix) 20 mg IVP DAILY [facility] Last Admin: 11/08/18 09:33 Dose: 20 mg Glipizide (Glucotrol) 10 mg PO ACB [facility] Last Admin: 11/08/18 09:28 Dose: 10 mg Heparin Sodium (Porcine) (Heparin) 5,000 units SC Q8 [facility] Last Admin: 11/06/18 21:48 Dose: 5,000 units Insulin Glargine (Lantus) 10 unit SC [facility] Last Admin: 11/08/18 22:44 Dose: 10 u Insulin Human Regular (Novolin R) 0 unit SC [facility]; Protocol Last Admin: 11/08/18 22:43 Dose: 2 unit Losartan Potassium (Cozaar) 50 mg PO DAILY [facility] Last Admin: 11/08/18 09:32 Dose: 50 mg Rosuvastatin Calcium (Crestor) 5 mg PO [facility] Last Admin: 11/08/18 22:44 Dose: 5 mg Sitagliptin Phosphate (Januvia) 100 mg PO DAILY [facility] Last Admin: 11/08/18 09:33 Dose: 100 mg - Labs Labs: 11/07/18 07:41 11/07/18 07:41 PT 11.5 SECONDS (9.7-12.2) 11/07/18 07:41 INR 1.1 11/07/18 07:41
[2018-11-09] MEDS: (Novolin R) Insulin Human Regular 100 units/ml vial SC SCH ×4 (09:01→21:41)
--- NOTE | 2018-11-09 11:08 | CP.PCM.PN ---
<Radha Dan - Last Filed: 11/09/18 16:36> Subjective - Date & Time of Evaluation Date of Evaluation: 11/09/18 Time of Evaluation: 11:08 - Subjective Subjective: Progress note for Dr. Garrett Patient was seen and examined at bedside in no acute distress. Patient has no complaints today and feels well. No acute events overnight. Deneis chest pain, sob, palpitations, n/v, abdominal pain, leg pain, and leg swelling. Objective - Vital Signs/Intake and Output Vital Signs (last 24 hours): Temp Pulse Resp BP Pulse Ox 97.2 F L 81 20 162/82 H 98 11/09/18 07:00 11/09/18 08:28 11/09/18 07:00 11/09/18 09:01 11/09/18 07:00 - Medications Medications: Current Medications Albuterol/Ipratropium (Duoneb 3 Mg/0.5 Mg (3 Ml) Ud) 3 ml INH RQ6 [facility] Last Admin: 11/09/18 08:05 Dose: 3 ml Famotidine (Pepcid) 20 mg PO DAILY [facility] Last Admin: 11/09/18 09:00 Dose: 20 mg Furosemide (Lasix) 20 mg IVP DAILY [facility] Last Admin: 11/09/18 09:01 Dose: 20 mg Glipizide (Glucotrol) 10 mg PO ACB [facility] Last Admin: 11/09/18 08:25 Dose: 10 mg Heparin Sodium (Porcine) (Heparin) 5,000 units SC Q8 [facility] Last Admin: 11/06/18 21:48 Dose: 5,000 units Insulin Glargine (Lantus) 10 unit SC HS [facility] Last Admin: 11/08/18 22:44 Dose: 10 u Insulin Human Regular (Novolin R) 0 unit SC ACHS [facility]; Protocol Last Admin: 11/09/18 09:01 Dose: 6 unit Losartan Potassium (Cozaar) 50 mg PO DAILY [facility] Last Admin: 11/09/18 09:01 Dose: 50 mg Rosuvastatin Calcium (Crestor) 5 mg PO HS [facility] Last Admin: 11/08/18 22:44 Dose: 5 mg Sitagliptin Phosphate (Januvia) 100 mg PO DAILY [facility] Last Admin: 11/09/18 09:00 Dose: 100 mg - Labs Labs: 11/07/18 07:41 11/07/18 07:41 PT 11.5 SECONDS (9.7-12.2) 11/07/18 07:41 INR 1.1 11/07/18 07:41 - Constitutional Appears: No Acute Distress - Head Exam Head Exam: ATRAUMATIC, NORMOCEPHALIC - Eye Exam Eye Exam: EOMI, Normal appearance - ENT Exam ENT Exam: Mucous Membranes Moist - Respiratory Exam Respiratory Exam: Decreased Breath Sounds, NORMAL BREATHING PATTERN. absent: Rales, Rhonchi, Wheezes - Cardiovascular Exam Cardiovascular Exam: REGULAR RHYTHM, +S1, +S2 - GI/Abdominal Exam GI & Abdominal Exam: Soft, Normal Bowel Sounds. absent: Distended, Firm, Tenderness Additional comments: obese - Extremities Exam Extremities Exam: Normal Inspection. absent: Pedal Edema, Tenderness - Neurological Exam Neurological Exam: Alert, Awake, Oriented x3 - Psychiatric Exam Psychiatric exam: Normal Affect, Normal Mood - Skin Skin Exam: Dry, Normal Color, Warm Assessment and Plan - Assessment and Plan (Free Text) Plan: 37-year-old male with a history of hypertension, diabetes, hypercholesterolemia, obesity, obesity hypoventilation. Cardiology consulted for dyspnea, leg edema Dyspnea, Leg Edema - Stress test: normal - Echo: normal LV size/systolic/diastolic function, mild concentric LVH, normal RV size/systolic/diastolic function; mildly dilated LA, normal RA size; trace MR; trace TR; EF 61%. - Cardiac cath: normal cath, normal EF - Continue Lasix 20mg IV daily, Crestor 5mg PO HS, Losartan 50mg PO daily MICHAEL - likely the cause of cardiac pauses - Consulted EP, Dr. Heredia, for evaluation of cardiac pauses, bradycardia, and possible pacemaker HTN - Continue Losartan 50mg PO daily - Will continue to monitor Case discussed with Dr. Gerry Wilkins, PGY2 <Bello Garrett - Last Filed: 11/10/18 21:31> Objective - Vital Signs/Intake and Output Vital Signs (last 24 hours): Temp Pulse Resp BP Pulse Ox 97.8 F 92 H 20 103/63 97 11/10/18 16:17 11/10/18 16:17 11/10/18 16:17 11/10/18 16:17 11/10/18 16:17 Intake and Output: 11/10/18 11/11/18 18:59 06:59 Intake Total 0 Balance 0 - Medications Medications: Current Medications Acetaminophen (Tylenol 325mg Tab) 650 mg PO Q6H PRN PRN Reason: Pain, moderate (4-7) Albuterol/Ipratropium (Duoneb 3 Mg/0.5 Mg (3 Ml) Ud) 3 ml INH RQ8 [facility] Last Admin: 11/10/18 15:53 Dose: 3 ml Ergocalciferol (Drisdol 50,000 Intl Units Cap) 1 cap PO QWK [facility] Famotidine (Pepcid) 20 mg PO DAILY [facility] Last Admin: 11/10/18 09:33 Dose: 20 mg Furosemide (Lasix) 20 mg IVP DAILY [facility] Last Admin: 11/10/18 09:33 Dose: 20 mg Furosemide (Lasix) 20 mg PO DAILY [facility] Glipizide (Glucotrol) 10 mg PO ACB [facility] Last Admin: 11/10/18 08:30 Dose: 10 mg Glipizide (Glucotrol) 10 mg PO DAILY [facility] Heparin Sodium (Porcine) (Heparin) 5,000 units SC Q8 [facility] Last Admin: 11/10/18 21:02 Dose: Not Given Ibuprofen (Motrin Tab) 400 mg PO Q6H PRN PRN Reason: Pain, Mild (1-3) Insulin Glargine (Lantus) 15 unit SC HS [facility] Last Admin: 11/10/18 21:03 Dose: Not Given Insulin Glargine (Lantus) 30 unit SC HS [facility] Insulin Human Regular (Novolin R) 0 unit SC ACHS [facility]; Protocol Last Admin: 11/10/18 21:03 Dose: Not Given Losartan Potassium (Cozaar) 50 mg PO DAILY [facility] Last Admin: 11/10/18 09:33 Dose: 50 mg Metformin HCl (Glucophage) 1,000 mg PO BID [facility] Last Admin: 11/10/18 17:28 Dose: Not Given Metformin HCl (Glucophage) 1,000 mg PO BID [facility] Oxycodone/Acetaminophen (Percocet 5/325 Mg Tab) 1 tab PO Q4H PRN PRN Reason: Pain, severe (8-10) Stop: 11/13/18 20:42 Pantoprazole Sodium (Protonix Ec Tab) 40 mg PO DAILY [facility] Potassium Chloride (Klor-Con 10) 10 meq PO DAILY [facility] Rosuvastatin Calcium (Crestor) 5 mg PO HS [facility] Last Admin: 11/10/18 21:02 Dose: Not Given Sitagliptin Phosphate (Januvia) 100 mg PO DAILY [facility] Last Admin: 11/10/18 09:33 Dose: 100 mg Sitagliptin Phosphate (Januvia) 100 mg PO DAILY [facility] - Labs Labs: 11/10/18 08:18 11/10/18 08:18 PT 11.5 SECONDS (9.7-12.2) 11/07/18 07:41 INR 1.1 11/07/18 07:41 Assessment and Plan - Assessment and Plan (Free Text) Plan: Patient seen and evaluated personally by me. Plan of vijaye d/w the medical editor and as documented
--- NOTE | 2018-11-09 18:29 | CP.PCM.PN ---
Subjective - Date & Time of Evaluation Date of Evaluation: 11/08/18 Time of Evaluation: 18:29 - Subjective Subjective: Patient is not in any distress. But still not using the CPAP at night mostly sometimes he is a taking out. But when the CPAP is off patient has a frequent episodes of bradycardic event. Blood sugar still elevated. We will get the bariatric surgeon, but I will speak to them for possible exp ediating the surgical intervention for her gastric sleeve. Will follow the patient Objective - Vital Signs/Intake and Output Vital Signs (last 24 hours): Temp Pulse Resp BP Pulse Ox 97.9 F 79 20 135/88 97 11/09/18 16:03 11/09/18 16:03 11/09/18 16:03 11/09/18 16:03 11/09/18 16:03 Intake and Output: 11/09/18 11/09/18 06:59 18:59 Intake Total 800 Balance 800 - Medications Medications: Current Medications Albuterol/Ipratropium (Duoneb 3 Mg/0.5 Mg (3 Ml) Ud) 3 ml INH RQ6 [facility] Last Admin: 11/09/18 13:20 Dose: 3 ml Famotidine (Pepcid) 20 mg PO DAILY [facility] Last Admin: 11/09/18 09:00 Dose: 20 mg Furosemide (Lasix) 20 mg IVP DAILY [facility] Last Admin: 11/09/18 09:01 Dose: 20 mg Glipizide (Glucotrol) 10 mg PO ACB [facility] Last Admin: 11/09/18 08:25 Dose: 10 mg Heparin Sodium (Porcine) (Heparin) 5,000 units SC Q8 [facility] Last Admin: 11/06/18 21:48 Dose: 5,000 units Insulin Glargine (Lantus) 10 unit SC HS [facility] Last Admin: 11/08/18 22:44 Dose: 10 u Insulin Human Regular (Novolin R) 0 unit SC ACHS [facility]; Protocol Last Admin: 11/09/18 17:53 Dose: 2 unit Losartan Potassium (Cozaar) 50 mg PO DAILY [facility] Last Admin: 11/09/18 09:01 Dose: 50 mg Rosuvastatin Calcium (Crestor) 5 mg PO HS [facility] Last Admin: 11/08/18 22:44 Dose: 5 mg Sitagliptin Phosphate (Januvia) 100 mg PO DAILY [facility] Last Admin: 11/09/18 09:00 Dose: 100 mg - Labs Labs: 11/07/18 07:41 11/07/18 07:41 PT 11.5 SECONDS (9.7-12.2) 11/07/18 07:41 INR 1.1 11/07/18 07:41
--- NOTE | 2018-11-09 18:45 | CP.PCM.PN ---
Subjective - Date & Time of Evaluation Date of Evaluation: 11/09/18 Time of Evaluation: 18:44 - Subjective Subjective: The patient is now comfortably sitting and lying down. But while he is sleeping he can have a increasing snoring and episodes of apnea noted. Given last night the patient had episodes of bradycardia, and the second-degree heart block. 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 Most likely all of this changes secondary to sleep apnea. Awaiting still for EP evaluation. Patient is otherwise comfortable not in any distress. Chest bilateral good air entry. Heart sound regular Nontender abdomen. Pedal edema bilaterally more on the right leg noted. We will continue the current treatment. Lasix. Diuretics as needed. DVT prophylaxis. And will follow the patient Objective - Vital Signs/Intake and Output Vital Signs (last 24 hours): Temp Pulse Resp BP Pulse Ox 97.9 F 79 20 135/88 97 11/09/18 16:03 11/09/18 16:03 11/09/18 16:03 11/09/18 16:03 11/09/18 16:03 Intake and Output: 11/09/18 11/09/18 06:59 18:59 Intake Total 800 Balance 800 - Medications Medications: Current Medications Albuterol/Ipratropium (Duoneb 3 Mg/0.5 Mg (3 Ml) Ud) 3 ml INH RQ6 [facility] Last Admin: 11/09/18 13:20 Dose: 3 ml Famotidine (Pepcid) 20 mg PO DAILY [facility] Last Admin: 11/09/18 09:00 Dose: 20 mg Furosemide (Lasix) 20 mg IVP DAILY [facility] Last Admin: 11/09/18 09:01 Dose: 20 mg Glipizide (Glucotrol) 10 mg PO ACB [facility] Last Admin: 11/09/18 08:25 Dose: 10 mg Heparin Sodium (Porcine) (Heparin) 5,000 units SC Q8 [facility] Last Admin: 11/06/18 21:48 Dose: 5,000 units Insulin Glargine (Lantus) 10 unit SC HS [facility] Last Admin: 11/08/18 22:44 Dose: 10 u Insulin Human Regular (Novolin R) 0 unit SC ACHS [facility]; Protocol Last Admin: 11/09/18 17:53 Dose: 2 unit Losartan Potassium (Cozaar) 50 mg PO DAILY [facility] Last Admin: 11/09/18 09:01 Dose: 50 mg Rosuvastatin Calcium (Crestor) 5 mg PO HS [facility] Last Admin: 11/08/18 22:44 Dose: 5 mg Sitagliptin Phosphate (Januvia) 100 mg PO DAILY [facility] Last Admin: 11/09/18 09:00 Dose: 100 mg - Labs Labs: 11/07/18 07:41 11/07/18 07:41 PT 11.5 SECONDS (9.7-12.2) 11/07/18 07:41 INR 1.1 11/07/18 07:41
[2018-11-09] MEDS: (Lantus) Insulin Glargine, Recombinant SC SCH (21:41)
--- NOTE | 2018-11-09 22:20 | CP.PCM.CON ---
History of Present Illness - History of Present Illness History of Present Illness: Dr. Garrett has asked me to see this patient with bradycardia. This is a 37 yo man who has a history of HTN, DM, diastolic CHF, morbid obesity, and MICHAEL. He was admitted with SOB and LE edema. He has undergone echocardiography, cardiac catheterization, ECG and telemetry monitoring. Telemetry monitoring has documented nocturnal pauses with periods of sinus arrest over 7 seconds in duration. He is not complaint with his BiPAP and does not enjoy it. No palpitations or associated dizziness. No modifying factors. PMEDHX: HTN, DM, diastolic CHF, morbid obesity, MICHAEL, OA SocialHx: No current tobacco or alcohol use Family Hx: no premature CAD or sudden Cath 11/07/18 No sig CAD Stress 02/18/17 Normal EF Normal perfusion Echo 11/04/18 LVH Nl EF no sig valve dz Review of Systems - Constitutional Constitutional: Chills, Daytime Sleepiness, Fever - EENT Eyes: absent: Blurred Vision, Diplopia Ears: absent: Decreased Hearing Nose/Mouth/Throat: absent: Epistaxis - Cardiovascular Cardiovascular: Dyspnea on Exertion, Edema - Respiratory Respiratory: absent: Cough - Gastrointestinal Gastrointestinal: absent: Abdominal Pain - Genitourinary Genitourinary: absent: Change in Urinary Stream - Musculoskeletal Musculoskeletal: Back Pain - Integumentary Integumentary: absent: Acne, Alopecia - Neurological Neurological: absent: Abnormal Hearing, Focal Weakness, Loss of Vision Past Patient History - Past Social History Smoking Status: Never Smoked - CARDIAC Hx Congestive Heart Failure: Yes Hx Hypertension: Yes - PULMONARY Hx Respiratory Disorders: No - NEUROLOGICAL Hx Neurological Disorder: No - HEENT Hx HEENT Problems: No - RENAL Hx Chronic Kidney Disease: No - ENDOCRINE/METABOLIC Hx Endocrine Disorders: Yes Hx Diabetes Mellitus Type 2: Yes - HEMATOLOGICAL/ONCOLOGICAL Hx Blood Disorders: No - INTEGUMENTARY Hx Dermatological Problems: No - MUSCULOSKELETAL/RHEUMATOLOGICAL Hx Musculoskeletal Disorders: Yes Hx Back Pain: Yes - GASTROINTESTINAL Hx Gastrointestinal Disorders: No - GENITOURINARY/GYNECOLOGICAL Hx Genitourinary Disorders: No - PSYCHIATRIC Hx Substance Use: No - SURGICAL HISTORY Hx Surgeries: No - ANESTHESIA Hx Anesthesia: No Meds Allergies/Adverse Reactions: Allergies Allergy/AdvReac Type Severity Reaction Status Date / Time No Known Allergies Allergy Verified 11/04/18 22:00 - Medications Medications: Current Medications Albuterol/Ipratropium (Duoneb 3 Mg/0.5 Mg (3 Ml) Ud) 3 ml INH RQ8 [facility] Last Admin: 11/09/18 20:39 Dose: 3 ml Famotidine (Pepcid) 20 mg PO DAILY [facility] Last Admin: 11/09/18 09:00 Dose: 20 mg Furosemide (Lasix) 20 mg IVP DAILY [facility] Last Admin: 11/09/18 09:01 Dose: 20 mg Glipizide (Glucotrol) 10 mg PO ACB [facility] Last Admin: 11/09/18 08:25 Dose: 10 mg Heparin Sodium (Porcine) (Heparin) 5,000 units SC Q8 [facility] Last Admin: 11/09/18 21:40 Dose: 5,000 units Insulin Glargine (Lantus) 15 unit SC HS [facility] Last Admin: 11/09/18 21:41 Dose: 15 unit Insulin Human Regular (Novolin R) 0 unit SC ACHS [facility]; Protocol Last Admin: 11/09/18 21:41 Dose: 2 unit Losartan Potassium (Cozaar) 50 mg PO DAILY [facility] Last Admin: 11/09/18 09:01 Dose: 50 mg Metformin HCl (Glucophage) 1,000 mg PO BID [facility] Last Admin: 11/09/18 18:55 Dose: 1,000 mg Rosuvastatin Calcium (Crestor) 5 mg PO HS [facility] Last Admin: 11/09/18 21:40 Dose: 5 mg Sitagliptin Phosphate (Januvia) 100 mg PO DAILY [facility] Last Admin: 11/09/18 09:00 Dose: 100 mg Physical Exam - Constitutional Appears: Well, Non-toxic - Head Exam Head Exam: ATRAUMATIC, NORMAL INSPECTION, NORMOCEPHALIC - Eye Exam Eye Exam: EOMI, Normal appearance, PERRL - ENT Exam ENT Exam: Mucous Membranes Moist, Normal Exam - Neck Exam Neck exam: Positive for: Normal Inspection - Respiratory Exam Respiratory Exam: Clear to Auscultation Bilateral - Cardiovascular Exam Cardiovascular Exam: REGULAR RHYTHM - GI/Abdominal Exam GI & Abdominal Exam: Normal Bowel Sounds - Neurological Exam Neurological exam: Alert, Oriented x3 - Psychiatric Exam Psychiatric exam: Normal Affect, Normal Mood - Skin Skin Exam: Dry, Warm Results - Vital Signs Recent Vital Signs: Last Vital Signs Temp 97.9 F 11/09/18 16:03 Pulse 79 11/09/18 16:03 Resp 20 11/09/18 16:03 BP 135/88 11/09/18 16:03 Pulse Ox 97 11/09/18 16:03 - Labs Result Diagrams: 11/07/18 07:41 11/07/18 07:41 Labs: Laboratory Results - last 24 hr 11/09/18 11/09/18 11/09/18 02:04 06:50 11:44 POC Glucose (mg/dL) 274 H 288 H 295 H 11/09/18 16:42 POC Glucose (mg/dL) 177 H Assessment & Plan - Assessment and Plan (Free Text) Assessment: This is a 37 yo man with CV history of DM, HTN, LVH, morbid obesity and diastolic dysfunction and MICHAEL. Admitted with SOB and LE edema. Has undergone echo and stress. Found to have prolonged periods of sinus arrest. Sinus arrest: He is non complaint with his bipap and is markedly obese. It is quite concerning that he has prolonged pauses at night. It does raise concern for hortencia induced arrhythmias. A pacemaker would be used infreuently during the day but would provide backup bradycardia pacing at night to avoid bradycardia induced arrhythmias. We discussed the benefits and drawbacks of pacemaker at length. At this time he is inclined to move forward with PPM placement. Will schedule for tomorrow afternoon. May have breakfast but then please keep NPO after midight. HTN: stable LVH: stable DM: stable
[2018-11-10] MEDS: Albuterol-Ipratrop 3 mg / 0.5 (3 ml) UD INH SCH ×4 (00:53→23:37)
--- NOTE | 2018-11-10 08:09 | CP.PCM.PN ---
<Radha Dan - Last Filed: 11/10/18 09:14> Subjective - Date & Time of Evaluation Date of Evaluation: 11/10/18 Time of Evaluation: 08:08 - Subjective Subjective: Progress note for Dr. Garrett Patient was seen and examined at bedside in no acute distress. Patient has no complaints today and feels well. He denies chest pain, palpitations, dyspnea, cough, nausea, vomiting, abdominal pain, fevers, headaches, dizziness, leg pain and swelling. Objective - Vital Signs/Intake and Output Vital Signs (last 24 hours): Temp Pulse Resp BP Pulse Ox 98.4 F 92 H 20 148/89 98 11/09/18 23:35 11/10/18 07:32 11/09/18 23:35 11/09/18 23:35 11/09/18 23:35 Intake and Output: 11/10/18 11/10/18 06:59 18:59 Intake Total 450 Balance 450 - Medications Medications: Current Medications Albuterol/Ipratropium (Duoneb 3 Mg/0.5 Mg (3 Ml) Ud) 3 ml INH RQ8 [facility] Last Admin: 11/10/18 00:53 Dose: 3 ml Famotidine (Pepcid) 20 mg PO DAILY [facility] Last Admin: 11/09/18 09:00 Dose: 20 mg Furosemide (Lasix) 20 mg IVP DAILY [facility] Last Admin: 11/09/18 09:01 Dose: 20 mg Glipizide (Glucotrol) 10 mg PO ACB [facility] Last Admin: 11/09/18 08:25 Dose: 10 mg Heparin Sodium (Porcine) (Heparin) 5,000 units SC Q8 [facility] Last Admin: 11/10/18 05:14 Dose: 5,000 units Insulin Glargine (Lantus) 15 unit SC HS [facility] Last Admin: 11/09/18 21:41 Dose: 15 unit Insulin Human Regular (Novolin R) 0 unit SC ACHS [facility]; Protocol Last Admin: 11/09/18 21:41 Dose: 2 unit Losartan Potassium (Cozaar) 50 mg PO DAILY [facility] Last Admin: 11/09/18 09:01 Dose: 50 mg Metformin HCl (Glucophage) 1,000 mg PO BID [facility] Last Admin: 11/09/18 18:55 Dose: 1,000 mg Rosuvastatin Calcium (Crestor) 5 mg PO HS [facility] Last Admin: 11/09/18 21:40 Dose: 5 mg Sitagliptin Phosphate (Januvia) 100 mg PO DAILY [facility] Last Admin: 11/09/18 09:00 Dose: 100 mg - Labs Labs: 11/07/18 07:41 11/07/18 07:41 PT 11.5 SECONDS (9.7-12.2) 11/07/18 07:41 INR 1.1 11/07/18 07:41 - Additional Findings Additional findings: - Constitutional Appears: No Acute Distress - Head Exam Head Exam: ATRAUMATIC, NORMOCEPHALIC - Eye Exam Eye Exam: EOMI, Normal appearance - ENT Exam ENT Exam: Mucous Membranes Moist - Respiratory Exam Respiratory Exam: Decreased Breath Sounds, NORMAL BREATHING PATTERN. absent: Rales, Rhonchi, Wheezes - Cardiovascular Exam Cardiovascular Exam: REGULAR RHYTHM, +S1, +S2 - GI/Abdominal Exam GI & Abdominal Exam: Soft, Normal Bowel Sounds. absent: Distended, Firm, Tenderness Additional comments: obese - Extremities Exam Extremities Exam: Normal Inspection. absent: Pedal Edema, Tenderness - Neurological Exam Neurological Exam: Alert, Awake, Oriented x3 - Psychiatric Exam Psychiatric exam: Normal Affect, Normal Mood - Skin Skin Exam: Dry, Normal Color, Warm Assessment and Plan - Assessment and Plan (Free Text) Plan: 37-year-old male with a history of hypertension, diabetes, hypercholesterolemia, obesity, obesity hypoventilation. Cardiology consulted for dyspnea, leg edema. Dyspnea, Leg Edema - Stress test: normal - Echo: normal LV size/systolic/diastolic function, mild concentric LVH, normal RV size/systolic/diastolic function; mildly dilated LA, normal RA size; trace MR; trace TR; EF 61%. - Cardiac cath: normal cath, normal EF - Continue Lasix 20mg IV daily, Crestor 5mg PO HS, Losartan 50mg PO daily - On Bipap HTN - Continue Losartan 50mg PO daily - Will continue to monitor MICHAEL - likely the cause of cardiac pauses - Consulted EP, Dr. Heredia, for evaluation of cardiac pauses, bradycardia, and possible pacemaker * Scheduled for pacemaker placement with Dr. Heredia in the afternoon today, NPO after breakfast. Case discussed with Dr. Gerry Wilkins, PGY2 <Bello Garrett - Last Filed: 11/10/18 21:31> Objective - Vital Signs/Intake and Output Vital Signs (last 24 hours): Temp Pulse Resp BP Pulse Ox 97.8 F 92 H 20 103/63 97 11/10/18 16:17 11/10/18 16:17 11/10/18 16:17 11/10/18 16:17 11/10/18 16:17 Intake and Output: 11/10/18 11/11/18 18:59 06:59 Intake Total 0 Balance 0 - Medications Medications: Current Medications Acetaminophen (Tylenol 325mg Tab) 650 mg PO Q6H PRN PRN Reason: Pain, moderate (4-7) Albuterol/Ipratropium (Duoneb 3 Mg/0.5 Mg (3 Ml) Ud) 3 ml INH RQ8 [facility] Last Admin: 11/10/18 15:53 Dose: 3 ml Ergocalciferol (Drisdol 50,000 Intl Units Cap) 1 cap PO QWK [facility] Famotidine (Pepcid) 20 mg PO DAILY [facility] Last Admin: 11/10/18 09:33 Dose: 20 mg Furosemide (Lasix) 20 mg IVP DAILY [facility] Last Admin: 11/10/18 09:33 Dose: 20 mg Furosemide (Lasix) 20 mg PO DAILY [facility] Glipizide (Glucotrol) 10 mg PO ACB [facility] Last Admin: 11/10/18 08:30 Dose: 10 mg Glipizide (Glucotrol) 10 mg PO DAILY [facility] Heparin Sodium (Porcine) (Heparin) 5,000 units SC Q8 [facility] Last Admin: 11/10/18 21:02 Dose: Not Given Ibuprofen (Motrin Tab) 400 mg PO Q6H PRN PRN Reason: Pain, Mild (1-3) Insulin Glargine (Lantus) 15 unit SC HS [facility] Last Admin: 11/10/18 21:03 Dose: Not Given Insulin Glargine (Lantus) 30 unit SC HS [facility] Insulin Human Regular (Novolin R) 0 unit SC ACHS [facility]; Protocol Last Admin: 11/10/18 21:03 Dose: Not Given Losartan Potassium (Cozaar) 50 mg PO DAILY [facility] Last Admin: 11/10/18 09:33 Dose: 50 mg Metformin HCl (Glucophage) 1,000 mg PO BID [facility] Last Admin: 11/10/18 17:28 Dose: Not Given Metformin HCl (Glucophage) 1,000 mg PO BID [facility] Oxycodone/Acetaminophen (Percocet 5/325 Mg Tab) 1 tab PO Q4H PRN PRN Reason: Pain, severe (8-10) Stop: 11/13/18 20:42 Pantoprazole Sodium (Protonix Ec Tab) 40 mg PO DAILY [facility] Potassium Chloride (Klor-Con 10) 10 meq PO DAILY [facility] Rosuvastatin Calcium (Crestor) 5 mg PO HS [facility] Last Admin: 11/10/18 21:02 Dose: Not Given Sitagliptin Phosphate (Januvia) 100 mg PO DAILY [facility] Last Admin: 11/10/18 09:33 Dose: 100 mg Sitagliptin Phosphate (Januvia) 100 mg PO DAILY [facility] - Labs Labs: 11/10/18 08:18 11/10/18 08:18 PT 11.5 SECONDS (9.7-12.2) 11/07/18 07:41 INR 1.1 11/07/18 07:41 Assessment and Plan - Assessment and Plan (Free Text) Plan: Patient seen and evaluated personally by me. Plan of britney d/w the medical legal investigator and as documented
[2018-11-10] MEDS: (Novolin R) Insulin Human Regular 100 units/ml vial SC SCH ×4 (08:30→21:03)
[2018-11-10 08:32] LABS: BASO # 0.1 K/uL (0.0-0.2); BASO % 0.9 % (0.0-2.0); EOS # 0.3 K/uL (0.0-0.7); EOS % 3.2 % (0.0-4.0); HEMOGLOBIN 16.6 g/dL (12.0-18.0); LYMPH # 1.9 K/uL (1.0-4.3); LYMPH % 23.8 % (20.0-40.0); MEAN CELL VOLUME 84.7 fL (80.0-94.0); MEAN CORPUSCULAR HEMOGLOBIN 29.1 pg (27.0-31.0); MEAN CORPUSCULAR HGB CONC 34.4 g/dL (33.0-37.0); MEAN PLATELET VOLUME 7.8 fL (7.2-11.7); MONO # 0.6 K/uL (0.0-0.8); MONO % 7.9 % (0.0-10.0); NEUT % 64.2 % (50.0-75.0); NRBC % 0.2 % (0.0-2.0); RBC 5.7 Mil/uL (4.40-5.90); RED CELL DISTRIBUTION WIDTH 13.3 % (11.5-14.5); WHITE BLOOD COUNT 7.8 K/uL (4.8-10.8)
[2018-11-10 08:57] LABS: ALB/GLOB RATIO 1.3 (1.0-2.1); ALBUMIN 3.7 g/dL (3.5-5.0); ALT/SGPT 49 U/L (21-72); AST/SGOT 32 U/L (17-59); BLOOD UREA NITROGEN 14 mg/dL (9-20); CALCIUM 8.6 mg/dl (8.6-10.4); GFR NON-AFRICAN AMERICAN > 60
[2018-11-10 09:55] LABS: ABG ALLEN TEST POS; ARTERIAL BLOOD GAS HCO3 28.9 mmol/L (21-28); ARTERIAL BLOOD GAS O2 SAT 89.5 % (95-98); ARTERIAL BLOOD GAS PCO2 52 mm/Hg (35-45); ARTERIAL BLOOD GAS PO2 51 mm/Hg (80-100); ARTERIAL BLOOD GAS TCO2 33.8 mmol/L (22-28)
[2018-11-10] MEDS ORDERED: Lidocaine 2% MPF (5 ml) Inj ONE (18:15)
[2018-11-10] MEDS ORDERED: Gentamicin 80 mg in 0.9% NS 80 MG/100 ML BAG IVPB STA (19:28)
[2018-11-10] MEDS ORDERED: Midazolam 2 MG/2 ML VIAL ONE ×2 (19:51→20:11)
[2018-11-10] MEDS: (Lantus) Insulin Glargine, Recombinant SC SCH (21:03)
[2018-11-10] MEDS ORDERED: (Lantus) Insulin Glargine, Recombinant SC SCH (22:00)
[2018-11-10] MEDS: Oxycodone/Acetaminophen 5/325 mg Tab PO PRN (22:07)
[2018-11-11] MEDS: Oxycodone/Acetaminophen 5/325 mg Tab PO PRN ×2 (05:12→12:43)
[2018-11-11 07:55] VITALS: RESP 20; TEMP 98.4; O2SAT 94
--- NOTE | 2018-11-11 08:21 | CP.PCM.PN ---
Subjective - Date & Time of Evaluation Date of Evaluation: 11/10/18 Time of Evaluation: 08:21 - Subjective Subjective: Patient was seen by historic site administrator. He was given options for pacemaker. Patient agreed and the pacemaker was placed on 11/10/2018. I also spoke to the bariatric surgeon. He will possibly will do the surgery as soon as possible given his worsening comorbidities at this time. Once cleared by the historic site administrator possibly discharge the patient Objective - Vital Signs/Intake and Output Vital Signs (last 24 hours): Temp Pulse Resp BP Pulse Ox 98.4 F 94 H 20 120/68 94 L 11/11/18 07:00 11/11/18 07:00 11/11/18 07:00 11/11/18 07:00 11/11/18 07:00 - Medications Medications: Current Medications Acetaminophen (Tylenol 325mg Tab) 650 mg PO Q6H PRN PRN Reason: Pain, moderate (4-7) Albuterol/Ipratropium (Duoneb 3 Mg/0.5 Mg (3 Ml) Ud) 3 ml INH RQ8 [facility] Last Admin: 11/10/18 23:37 Dose: Not Given Ergocalciferol (Drisdol 50,000 Intl Units Cap) 1 cap PO QWK [facility] Famotidine (Pepcid) 20 mg PO DAILY [facility] Last Admin: 11/10/18 09:33 Dose: 20 mg Furosemide (Lasix) 20 mg PO DAILY [facility] Glipizide (Glucotrol) 10 mg PO ACB [facility] Last Admin: 11/10/18 08:30 Dose: 10 mg Glipizide (Glucotrol) 10 mg PO DAILY [facility] Heparin Sodium (Porcine) (Heparin) 5,000 units SC Q8 [facility] Last Admin: 11/11/18 05:12 Dose: 5,000 units Ibuprofen (Motrin Tab) 400 mg PO Q6H PRN PRN Reason: Pain, Mild (1-3) Insulin Glargine (Lantus) 15 unit SC HS [facility] Last Admin: 11/10/18 21:03 Dose: Not Given Insulin Glargine (Lantus) 30 unit SC HS [facility] Last Admin: 11/10/18 22:11 Dose: Not Given Insulin Human Regular (Novolin R) 0 unit SC [facility]; Protocol Last Admin: 11/10/18 21:03 Dose: Not Given Losartan Potassium (Cozaar) 50 mg PO DAILY [facility] Last Admin: 11/10/18 09:33 Dose: 50 mg Metformin HCl (Glucophage) 1,000 mg PO BID [facility] Last Admin: 11/10/18 17:28 Dose: Not Given Metformin HCl (Glucophage) 1,000 mg PO BID [facility] Oxycodone/Acetaminophen (Percocet 5/325 Mg Tab) 1 tab PO Q4H PRN PRN Reason: Pain, severe (8-10) Stop: 11/13/18 20:42 Last Admin: 11/11/18 05:12 Dose: 1 tab Pantoprazole Sodium (Protonix Ec Tab) 40 mg PO DAILY [facility] Potassium Chloride (Klor-Con 10) 10 meq PO DAILY [facility] Rosuvastatin Calcium (Crestor) 5 mg PO HS [facility] Last Admin: 11/10/18 21:02 Dose: Not Given Sitagliptin Phosphate (Januvia) 100 mg PO DAILY [facility] Last Admin: 11/10/18 09:33 Dose: 100 mg Sitagliptin Phosphate (Januvia) 100 mg PO DAILY [facility] - Labs Labs: 11/10/18 08:18 11/10/18 08:18 PT 11.5 SECONDS (9.7-12.2) 11/07/18 07:41 INR 1.1 11/07/18 07:41
--- NOTE | 2018-11-11 08:24 | CP.PCM.PN ---
Subjective - Date & Time of Evaluation Date of Evaluation: 11/11/18 Time of Evaluation: 08:23 - Subjective Subjective: Patient complaining of more pain 02/24 will operated site on the left upper chest area. Mild respiratory distress because of the pain. No cough noted. Patient was able to stand up and walk. Denies any other systemic symptoms. The blood sugar still elevated. I would like to get the repeat chest x-ray, if it is staying stable we will po ssibly plan for discharge. But he is complaining of increasing pain, will adjust the pain with pain medications including Percocet and ibuprofen and follow-up Objective - Vital Signs/Intake and Output Vital Signs (last 24 hours): Temp Pulse Resp BP Pulse Ox 98.4 F 94 H 20 120/68 94 L 11/11/18 07:00 11/11/18 07:00 11/11/18 07:00 11/11/18 07:00 11/11/18 07:00 - Medications Medications: Current Medications Acetaminophen (Tylenol 325mg Tab) 650 mg PO Q6H PRN PRN Reason: Pain, moderate (4-7) Albuterol/Ipratropium (Duoneb 3 Mg/0.5 Mg (3 Ml) Ud) 3 ml INH RQ8 [facility] Last Admin: 11/10/18 23:37 Dose: Not Given Ergocalciferol (Drisdol 50,000 Intl Units Cap) 1 cap PO QWK [facility] Famotidine (Pepcid) 20 mg PO DAILY [facility] Last Admin: 11/10/18 09:33 Dose: 20 mg Furosemide (Lasix) 20 mg PO DAILY [facility] Glipizide (Glucotrol) 10 mg PO ACB [facility] Last Admin: 11/10/18 08:30 Dose: 10 mg Glipizide (Glucotrol) 10 mg PO DAILY [facility] Heparin Sodium (Porcine) (Heparin) 5,000 units SC Q8 [facility] Last Admin: 11/11/18 05:12 Dose: 5,000 units Ibuprofen (Motrin Tab) 400 mg PO Q6H PRN PRN Reason: Pain, Mild (1-3) Insulin Glargine (Lantus) 15 unit SC HS [facility] Last Admin: 11/10/18 21:03 Dose: Not Given Insulin Glargine (Lantus) 30 unit SC HS [facility] Last Admin: 11/10/18 22:11 Dose: Not Given Insulin Human Regular (Novolin R) 0 unit SC ACHS [facility]; Protocol Last Admin: 11/10/18 21:03 Dose: Not Given Losartan Potassium (Cozaar) 50 mg PO DAILY [facility] Last Admin: 11/10/18 09:33 Dose: 50 mg Metformin HCl (Glucophage) 1,000 mg PO BID [facility] Last Admin: 11/10/18 17:28 Dose: Not Given Metformin HCl (Glucophage) 1,000 mg PO BID [facility] Oxycodone/Acetaminophen (Percocet 5/325 Mg Tab) 1 tab PO Q4H PRN PRN Reason: Pain, severe (8-10) Stop: 11/13/18 20:42 Last Admin: 11/11/18 05:12 Dose: 1 tab Pantoprazole Sodium (Protonix Ec Tab) 40 mg PO DAILY [facility] Potassium Chloride (Klor-Con 10) 10 meq PO DAILY [facility] Rosuvastatin Calcium (Crestor) 5 mg PO HS [facility] Last Admin: 11/10/18 21:02 Dose: Not Given Sitagliptin Phosphate (Januvia) 100 mg PO DAILY [facility] Last Admin: 11/10/18 09:33 Dose: 100 mg Sitagliptin Phosphate (Januvia) 100 mg PO DAILY [facility] - Labs Labs: 11/10/18 08:18 11/10/18 08:18 PT 11.5 SECONDS (9.7-12.2) 11/07/18 07:41 INR 1.1 11/07/18 07:41
[2018-11-11 08:48] VITALS: PULSE 110
[2018-11-11] MEDS: (Novolin R) Insulin Human Regular 100 units/ml vial SC SCH ×2 (09:03→12:44)
[2018-11-11 09:07] VITALS: BP 120/78
[2018-11-11] MEDS: Albuterol-Ipratrop 3 mg / 0.5 (3 ml) UD INH SCH ×2 (09:50→15:40)
[2018-11-11] MEDS ORDERED: Pantoprazole 40 mg EC Tab PO SCH (10:00)
[2018-11-11] MEDS ORDERED: Potassium Chloride 10 mEq ER Tab PO SCH (10:00)
--- NOTE | 2018-11-11 10:05 | PCM.OP ---
Operative Report - Operative Report Date of Surgery/Procedure: 11/10/18 Time of Surgery/Procedure: 19:30 Surgeon: akila Veterinary Science Teacher: none Anesthesia/Sedation: 3 mg versed Pre-Operative Diagnosis: sinus arrest Post-Operative Diagnosis: sinus arrest Indication for Surgery: sinus arrest Operative Findings: psa as reported job number [id number] Procedure/Operation Description: pacemaker insertion via axillary vein Estimated Blood Loss: 30 cc Complications: none Discharge & Condition: stable
--- NOTE | 2018-11-11 11:00 | RAD ---
Date of service: 11/10/2018 PROCEDURE: CHEST RADIOGRAPH, 1 VIEW HISTORY: post pacemaker COMPARISON: 11/04/2018 FINDINGS: LUNGS: Clear. PLEURA: No pneumothorax or pleural fluid seen. CARDIOVASCULAR: No aortic atherosclerotic calcification present. Normal heart size. Permanent pacemaker. OSSEOUS STRUCTURES: No significant abnormalities. VISUALIZED UPPER ABDOMEN: Normal. OTHER FINDINGS: None. IMPRESSION: No active disease.
[2018-11-11] MEDS ORDERED: Pneumococcal 23-Valent Vaccine IM ONE (14:30)
--- NOTE | 2018-11-11 16:32 | RAD ---
Date of service: 11/11/2018 HISTORY: pacemaker COMPARISON: 11/10/2018 TECHNIQUE: 1 view obtained. FINDINGS: LUNGS: No active pulmonary disease. PLEURA: No significant pleural effusion identified, no pneumothorax apparent. CARDIOVASCULAR: No aortic atherosclerotic calcification present. Normal cardiac size. Permanent pacemaker noted. No pulmonary vascular congestion. OSSEOUS STRUCTURES: No significant abnormalities. VISUALIZED UPPER ABDOMEN: Normal. OTHER FINDINGS: None. IMPRESSION: No active disease.
--- NOTE | 2018-11-11 20:54 | OP ---
PROCEDURE DATE: 11/10/2018 PROCEDURE: Pacemaker insertion. PREOPERATIVE DIAGNOSES: Sinus arrest and bradycardia. POSTOPERATIVE DIAGNOSES: Sinus arrest and bradycardia. SURGEON: Ryley Heredia MD COMPLICATIONS: None. ESTIMATED BLOOD LOSS: 30 mL. ANESTHESIA: Monitored care. EDUCATION SITE MANAGER: None. SPECIMEN: None. REFERRING PROVIDER: Bello Garrett MD. CLINICAL HISTORY: This is a 37-year-old gentleman with a history of hypertension, diabetes mellitus, morbid obesity, obstructive sleep apnea, diastolic congestive heart failure, who was found to have sinus arrest episodes over 7 seconds with sleeping. He is noncompliant with his sleep apnea mask and now presents for pacemaker insertion. DESCRIPTION OF PROCEDURE: The patient was brought to the cardiac electrophysiology laboratory and prepared in standard fashion. Continuous blood pressure, heart rate, electrocardiogram and pulse oximetry monitored throughout the procedure. Area over the left chest was anesthetized with local injection of 2% lidocaine. A #10 blade was used to make a 2 cm incision down to pectoral groove. With careful blunt dissection and electrocautery performed, we identified the pectoral fascia and a pocket was made for the device above the pectoralis muscles. Percutaneous wire was advanced by left axillary vein through right atrium. A second percutaneous wire was advanced by left axillary vein through left atrium. An Introducer Sheath was advanced over the first guidewire and active fixation pacing lead was then advanced under fluoroscopic guidance to the mid interventricular septum where appropriate pacing and sensing thresholds were obtained. A second Introducer sheath was advanced over the second guidewire and active fixation pacing lead was advanced under fluoroscopic guidance through the right atrium appendage, appropriate pacing and sensing thresholds were obtained. Individual silk ties were used to secure the introducer sheath to the underlying fascia. The pocket was irrigated liberally with bacitracin-containing saline solution and observed. Leads were connected to the pacemaker generator which was placed into the pocket and secured to the underlying fascia with 0 silk stitch. Deep subcutaneous tissue was closed with interrupted stitches of 2-0 Vicryl. Superficial subcutaneous tissue was closed with interrupted stitches of 3-0 Vicryl. Subcuticular tissue was closed with running stitches of 4-0 Monocryl. Dermabond was applied to incision as well as a pressure dressing. There were no complications. FINDINGS: 1. Device is a [employer], serial #[id number]. 2. The atrial lead is a Medtronic 52 cm [id number], serial #[id number]. 3. The ventricular lead is a Medtronic 5076 that is 58 cm, serial #[id number]. 4. Pacing and sensing analyzer measuring sensing R-wave is 2.9 mV, impedance 195 ohms. Capillary pressure 0.5 volts. Left ventricular is 14.6 mV, impendence 940 ohms , capillary pressure 0.4 volts. CONCLUSION: Successful dual-chamber pacemaker insertion via axillary vein access. PLAN: Routine followup. Ryley Heredia MD
--- NOTE | 2018-11-12 10:04 | CP.PCM.PN ---
Subjective - Date & Time of Evaluation Date of Evaluation: 11/11/18 Time of Evaluation: 09:05 - Subjective Subjective: Patient was seen and examined at bedside in no acute distress. Patient s/p PPM POD # 1 Physical Examination - Additional Findings Additional findings: - Constitutional Appears: No Acute Distress - Head Exam Head Exam: ATRAUMATIC, NORMOCEPHALIC - Eye Exam Eye Exam: EOMI, Normal appearance - ENT Exam ENT Exam: Mucous Membranes Moist - Respiratory Exam Respiratory Exam: Decreased Breath Sounds, NORMAL BREATHING PATTERN. absent: Rales, Rhonchi, Wheezes - Cardiovascular Exam Cardiovascular Exam: REGULAR RHYTHM, +S1, +S2 s/p PPM - GI/Abdominal Exam GI & Abdominal Exam: Soft, Normal Bowel Sounds. absent: Distended, Firm, Tenderness Additional comments: obese - Extremities Exam Extremities Exam: Normal Inspection. absent: Pedal Edema, Tenderness - Neurological Exam Neurological Exam: Alert, Awake, Oriented x3 - Psychiatric Exam Psychiatric exam: Normal Affect, Normal Mood - Skin Skin Exam: Dry, Normal Color, Warm Assessment and Plan - Assessment and Plan (Free Text) Plan: 37-year-old male with a history of hypertension, diabetes, hypercholesterole regan, obesity, obesity hypoventilation. Cardiology consulted for dyspnea, leg edema. Dyspnea, Leg Edema - Stress test: normal - Echo: normal LV size/systolic/diastolic function, mild concentric LVH, normal RV size/systolic/diastolic function; mildly dilated LA, normal RA size; trace MR; trace TR; EF 61%. - Cardiac cath: normal cath, normal EF - Continue Lasix 20mg PO daily, Crestor 5mg PO HS, Losartan 50mg PO daily - On Bipap HTN - Continue Losartan 50mg PO daily - Will continue to monitor MICHAEL.Sinus arrest - likely the cause of cardiac pauses - * S/P PPM POD # 1 Objective - Vital Signs/Intake and Output Vital Signs (last 24 hours): Temp Pulse Resp BP Pulse Ox 98.4 F 110 H 20 120/78 94 L 11/11/18 07:00 11/11/18 08:43 11/11/18 07:00 11/11/18 09:06 11/11/18 07:00 - Labs Labs: 11/10/18 08:18 11/10/18 08:18 PT 11.5 SECONDS (9.7-12.2) 11/07/18 07:41 INR 1.1 11/07/18 07:41
--- NOTE | 2018-11-13 05:15 | CARDCATH ---
PROCEDURE DATE: 11/07/2018 PROCEDURES: 1. Left heart catheterization. 2. Coronary angiogram. CLINICAL INDICATIONS: 1. Chest pain. 2. Dyspnea. 3. Hypertension. 4. Hyperlipidemia. 5. Diabetes. 6. Obesity. 7. Cardiac arrhythmias, requiring permanent pacemaker placement. REFERRING PHYSICIAN: Belem Huerta MD PERFORMING PHYSICIAN: Bello Garrett MD DESCRIPTION OF THE PROCEDURE: After informed consent, the patient was prepped and draped in the usual sterile fashion. Lidocaine 2% was given in the right wrist for local anesthesia. Using micropuncture technique, a 6-Omani sheath was introduced into the right radial artery. A JR4 6-Omani diagnostic catheter was inserted into left ventricle across the aortic valve. Contrast was injected and left ventricular angiogram was done. Then, the catheter was pulled back across the aortic valve. Gradient across the aortic valve was measured. Then, the same catheter was engaged into right coronary artery. Contrast was injected and right coronary angiogram was done. Then, the catheter was exchanged to 6-Omani Dayton catheter. [place] catheter was engaged into the left main coronary artery. Contrast was injected and left coronary angiogram was done. The patient tolerated the procedure well. Postprocedure, Terumo radial band was applied with excellent hemostasis. Radiological interpretation and radiological supervision of the coronary imaging was done. FINDINGS: 1. Left main coronary artery is patent. 2. Proximal and mid LAD is patent. Diagonal branches are patent. However, distal LAD has a 50% to 60% diffuse narrowing. 3. Left circumflex and obtuse marginal branches are patent. 4. Right coronary artery is dominant and patent. 5. LV ejection fraction is 60%. No wall motion abnormalities noted. EDP is 20. No gradient across the aortic valve. IMPRESSION: 1. Nonobstructive coronaries as described above. Distal left anterior descending has a diffuse 50% to 60% narrowing. 2. Normal left ventricular systolic function. PLAN: Recommend medical management including aspirin and statins. Bello Garrett MD
[2018-11-17] MEDS ORDERED: Ergocalciferol 50,000 Intl Units Cap PO SCH (10:00)
== END 2018-11-11 15:45 | disposition home or self-care (01) | DRG 548 ==
LOC: C.ER 21:52 → C.9E 23:04 → C.5S 23:34
PROVIDERS: ADMIT Internal Medicine; ATTEND Internal Medicine
PROC: 4A023N7 Measurement of Cardiac Sampling and Pressure, Left Heart, Percutaneous Approach (ICD-10-PCS; 2018-11-09)
PROC: B2151ZZ Fluoroscopy of Left Heart using Low Osmolar Contrast (ICD-10-PCS; 2018-11-09)
PROC: B2111ZZ Fluoroscopy of Multiple Coronary Arteries using Low Osmolar Contrast (ICD-10-PCS; 2018-11-09)
PROC: 0JH606Z Insertion of Pacemaker, Dual Chamber into Chest Subcutaneous Tissue and Fascia, Open Approach (ICD-10-PCS; principal; 2018-11-10)
PROC: 02H63JZ Insertion of Pacemaker Lead into Right Atrium, Percutaneous Approach (ICD-10-PCS; 2018-11-10)
PROC: 02HK3JZ Insertion of Pacemaker Lead into Right Ventricle, Percutaneous Approach (ICD-10-PCS; 2018-11-10)
DX: I49.5 Sick sinus syndrome (principal); I50.30 Unspecified diastolic (congestive) heart failure; I11.0 Hypertensive heart disease with heart failure; I45.5 Other specified heart block; I44.1 Atrioventricular block, second degree; E66.2 Morbid (severe) obesity with alveolar hypoventilation; R00.1 Bradycardia, unspecified; I49.8 Other specified cardiac arrhythmias; G47.33 Obstructive sleep apnea (adult) (pediatric); I27.81 Cor pulmonale (chronic); E11.9 Type 2 diabetes mellitus without complications; E66.01 Morbid (severe) obesity due to excess calories; E78.5 Hyperlipidemia, unspecified; E78.00 Pure hypercholesterolemia, unspecified; Z87.891 Personal history of nicotine dependence; Z82.0 Family history of epilepsy and other diseases of the nervous system; Z82.49 Family history of ischemic heart disease and other diseases of the circulatory system; Z83.3 Family history of diabetes mellitus